=== PATIENT | female | born 1985 | race Caucasian/White ===

== ENCOUNTER → 2019-03-22 | Outpatient (CLI) | payer MEDICAID, OTHER ==
--- NOTE | 2019-03-22 15:59 | REP ---
LEFT LOWER LEG, AP AND LATERAL: There is no evidence of an acute fracture, dislocation or intrinsic bone disease. IMPRESSION: No fracture or dislocation. Electronically Signed by Tesfaye Shelton MD 03/23/2019 12:38 P
== END ==
LOC: M LRY 14:21
PROVIDERS: ATTEND Physician Assistant
DX: S89.92XA Unspecified injury of left lower leg, initial encounter (principal); X58.XXXA Exposure to other specified factors, initial encounter